=== PATIENT | male | born 1985 | race Asian ===

== ENCOUNTER 2017-04-24 08:27 | Inpatient (IN) | payer OTHER ==
[~2017-04-24] VITALS: Ht 172.7 cm; Wt 64.2 kg
[~2017-04-24 08:27] MED LIST: CEPH500C PO; LACT1CAP57 PO
[2017-04-24] MEDS ORDERED: SOD CHLORIDE 0.9% 500 ML IV STA (08:44)
[2017-04-24 09:16] LABS: BASOPHILS % 0.3 % (0.0-2.0); EOSINOPHILS # 0.1 10^3/ul (0.0-0.5); EOSINOPHILS % 1.7 % (0.0-7.0); HEMATOCRIT 48.9 % (42.0-52.0); HEMOGLOBIN 16.7 g/dl (14.0-18.0); LYMPHOCYTES # 2.4 10^3/ul (0.8-2.9); LYMPHOCYTES % 40.9 % (15.0-51.0); MEAN CORPUSCULAR HGB CONC 34.2 g/dl (32.0-37.0); MEAN CORPUSCULAR VOLUME 87.9 fl (82.0-101.0); MEAN PLATELET VOLUME 10.5 fl (7.4-10.4); MONOCYTE # 0.3 10^3/ul (0.3-0.9); MONOCYTES % 5.9 % (0.0-11.0); PLATELET COUNT 187 10^3/UL (140-415); RED BLOOD COUNT 5.56 10^6/ul (4.70-6.10); RED CELL DISTRIBUTION WIDTH 12.6 % (11.5-14.5); WHITE BLOOD COUNT 5.8 10^3/ul (4.8-10.8)
[2017-04-24 09:39] LABS: ALANINE AMINOTRANSFERASE 32 IU/L (13-69); ALBUMIN 5.1 g/dl (3.3-4.9); ALBUMIN/GLOBULIN RATIO 1.37; ALKALINE PHOSPHATASE 100 IU/L (42-121); ANION GAP 18 (8-16); ASPARTATE AMINO TRANSFERASE 30 IU/L (15-46); BILIRUBIN,INDIRECT 0.5 mg/dl (0-1.1); BILIRUBIN,TOTAL 0.5 mg/dl (0.2-1.3); BLOOD UREA NITROGEN 22 mg/dl (7-20); CALCIUM 10.3 mg/dl (8.4-10.2); CARBON DIOXIDE 21 mmol/L (21-31); CHLORIDE 109 mmol/L (97-110); CREATININE 1.27 mg/dl (0.61-1.24); GLUCOSE 85 mg/dl (70-220); POTASSIUM 3.4 mmol/L (3.5-5.1); SODIUM 145 mmol/L (135-144); TOTAL PROTEIN 8.8 g/dl (6.1-8.1)
[2017-04-24 09:45] LABS: ETHANOL < 10.0 mg/dl
[2017-04-24 10:30] LABS: ADD UMIC YES; UR ASCORBIC ACID NEGATIVE (NEGATIVE); UR BACTERIA FEW /HPF (NONE SEEN); UR BILIRUBIN (Dip) NEGATIVE (NEGATIVE); UR BLOOD (Dip) NEGATIVE (NEGATIVE); UR CLARITY CLEAR (CLEAR); UR COLOR STRAW (YELLOW); UR GLUCOSE (Dip) NEGATIVE (NEGATIVE); UR KETONES (Dip) NEGATIVE (NEGATIVE); UR LEUKOCYTE ESTERASE (Dip) 1+ Leu/ul (NEGATIVE); UR NITRITE (Dip) POSITIVE (NEGATIVE); UR RBC 0 /HPF (0-5); UR SPECIFIC GRAVITY (Dip) 1.004 (1.003-1.030); UR TOTAL PROTEIN (Dip) NEGATIVE (NEGATIVE); UR UROBILINOGEN (Dip) NEGATIVE (NEGATIVE)
[2017-04-24 10:49] LABS: BARBITURATES Negative (NEGATIVE); BENZODIAZEPINES Negative (NEGATIVE)
[2017-04-24 10:50] LABS: CANNABINOIDS Negative (NEGATIVE); COCAINE Negative (NEGATIVE); OPIATES Negative (NEGATIVE)
--- NOTE | 2017-04-24 10:50 | RADRPT ---
PROCEDURE: XR Chest. CLINICAL INDICATION: Chest pain, altered level of consciousness TECHNIQUE: AP view of the chest was performed. COMPARISON: July 24, 2016 FINDINGS: The cardiomediastinal silhouette is within normal limits. The lungs are clear. No signs of pleural f luid or pneumothorax are seen. The osseous structures and soft tissues are unremarkable. IMPRESSION: No evidence for active cardiopulmonary disease. No interval change. RPTAT: QQ .Susanne Layton MD, MD Date Time Electronically viewed and signed by .Susanne Layton MD, on 04/24/2017 10:49 .F/
[2017-04-24] MEDS ORDERED: CEFTRIAXONE 1 GM/50 ML (PMX) 50 ML IVPB ONE (11:30)
[2017-04-24] MEDS ORDERED: SODIUM CHLORIDE 0.9% 1L BAG IV* STA (11:30)
--- NOTE | 2017-04-24 11:38 | ERA ---
ER Documentation Chief Complaint Date/Time DATE: 04/24/17 TIME: 11:33 Chief Complaint c/o generalized weakness and chest pressure HPI This is a 31-year-old male who presents via EMS. It was initially reported that the patient was feeling anxious after taking a caffeine pill. However after having further conversation with the patient this is not accurate. The patient is altered and confused. He has a history of paraplegia. He cannot provide adequate history and is having flight of ideas. I spoke to his girlfriend on the phone who lives with him and states that he has been altered for approximately 24 hours. The patient does have recent hospitalization for sepsis secondary to UTI. The patient cannot provide further history as he is confused. No report of trauma per his girlfriend. No report of overdose or acute medication intoxication per his girlfriend either. ROS All systems reviewed and are negative except as per history of present illness. Medications Home Meds Discontinued Scripts Lactobacillus Rhamnosus* (Culturelle*) 1 Each Cap.sprink, 1 CAP PO BID, #14 CAP Prov:SAQIB HOPKINS MD 07/28/16 Cephalexin* (Cephalexin*) 500 Mg Capsule, 500 MG PO Q8, #15 CAP Prov:SAQIB HOPKINS MD 07/28/16 Allergies Allergies: Coded Allergies: No Known Allergy (Unverified , 04/24/17) PMhx/Soc History of Surgery: Yes (right arm, right tibia, right hip, right limb surgery on 1997) Anesthesia Reaction: No Hx Neurological Disorder: Yes (right below the knee weakness and left below the ankle weakness) Hx Respiratory Disorders: No Hx Cardiac Disorders: No Hx Psychiatric Problems: No Hx Miscellaneous Medical Probl: Yes (kidney stones , 2008 laser surgery) Hx Alcohol Use: No Hx Substance Use: No Hx Tobacco Use: No Smoking Status: Never smoker FmHx Family History: No diabetes Physical Exam Vitals Vital Signs Date Time Temp Pulse Resp B/P Pulse Ox O2 Delivery O2 Flow Rate FiO2 04/24/17 13:00 98.2 87 18 140/100 98 Room Air 04/24/17 11:30 98.0 77 18 152/115 98 Room Air 04/24/17 08:37 98.3 84 18 203/112 98 Physical Exam General: Well developed, well nourished, no acute distress Head: Normocephalic, atraumatic Eyes: Pupils equally reactive, EOM intact ENT: Moist mucous membranes Neck: Supple, no lymphadenopathy Respiratory: Lungs clear bilaterally, no distress Cardiovascular: RRR, no murmurs, rubs, or gallops Abdominal: Soft, non-tender, non-distended, no peritoneal signs : Deferred MSK: No edema, no unilateral swelling, 5/5 strength to bilateral upper extremities, paraplegia Neurologic: Alert to person, flight of ideas, moving all 4 extremities, no meningismus skin: No rash Psych: Flight of ideas Result Diagram: 04/24/1789904/24/17 09 Results 24 hrs Laboratory Tests Test 04/24/17 09:00 04/24/17 09:40 White Blood Count 5.810^3/ul Red Blood Count 5.5610^6/ul Hemoglobin 16.7g/dl Hematocrit 48.9% Mean Corpuscular Volume 87.9fl Mean Corpuscular Hemoglobin 30.0pg Mean Corpuscular Hemoglobin Concent 34.2g/dl Red Cell Distribution Width 12.6% Platelet Count 06742^3/UL Mean Platelet Volume 10.5fl Neutrophils % 51.0% Lymphocytes % 40.9% Monocytes % 5.9% Eosinophils % 1.7% Basophils % 0.3% Nucleated Red Blood Cells % 0.0/100WBC Neutrophils # 3.010^3/ul Lymphocytes # 2.410^3/ul Monocytes # 0.310^3/ul Eosinophils # 0.110^3/ul Basophils # 0.010^3/ul Nucleated Red Blood Cells # 0.010^3/ul Sodium Level 145mmol/L Potassium Level 3.4mmol/L Chloride Level 109mmol/L Carbon Dioxide Level 21mmol/L Anion Gap 18 Blood Urea Nitrogen 22mg/dl Creatinine 1.27mg/dl Glucose Level 85mg/dl Calcium Level 10.3mg/dl Total Bilirubin 0.5mg/dl Direct Bilirubin 0.00mg/dl Indirect Bilirubin 0.5mg/dl Aspartate Amino Transf (AST/SGOT) 30IU/L Alanine Aminotransferase (ALT/SGPT) 32IU/L Alkaline Phosphatase 100IU/L Total Protein 8.8g/dl Albumin 5.1g/dl Globulin 3.70g/dl Albumin/Globulin Ratio 1.37 Free Thyroxine 1.08ng/dl Ethyl Alcohol Level < 10.0mg/dl Urine Color STRAW Urine Clarity CLEAR Urine pH 7.0 Urine Specific Howell 1.004 Urine Ketones NEGATIVEmg/dL Urine Nitrite POSITIVEmg/dL Urine Bilirubin NEGATIVEmg/dL Urine Urobilinogen NEGATIVEmg/dL Urine Leukocyte Esterase 1+Da/ul Urine Microscopic RBC 0/HPF Urine Microscopic WBC 34/HPF Urine Bacteria FEW/HPF Urine Hemoglobin NEGATIVEmg/dL Urine Glucose NEGATIVEmg/dL Urine Total Protein NEGATIVEmg/dl Urine Opiates Screen Negative Urine Barbiturates Negative Urine Amphetamines Screen Negative Urine Benzodiazepines Screen Negative Urine Cocaine Screen Negative Urine Cannabinoids Negative Current Medications Medications (Trade) Dose Ordered Sig/Juvenal Route PRN Reason Start Time Stop Time Status Last Admin Dose Admin Sodium Chloride (NS) 500 ml @ 500 mls/hr Q1H STAT IV 04/24/17 08:44 04/24/17 09:43 DC 04/24/17 09:04 Sodium Chloride 2020 ml 2,020 ml BOLUS OVER 2 HOURS STAT IV* 04/24/17 11:30 04/24/17 11:34 DC 04/24/17 11:30 Ceftriaxone Sodium (Rocephin) 50 ml @ 100 mls/hr ONCE ONCE IVPB 04/24/17 11:30 04/24/17 11:59 DC 04/24/17 13:29 Ondansetron HCl (Zofran Inj) 4 mg BRIDGE ORDER PRN IV NAUSEA AND/OR VOMITING 04/24/17 12:30 04/24/17 13:02 DC Acetaminophen (Tylenol Tab) 650 mg ER BRIDGE PRN PO MILD PAIN/FEVER 04/24/17 12:30 04/24/17 13:02 DC IV Flush (NS 3 ml) 3 ml PER PROTOCOL IV 04/24/17 13:00 Ondansetron HCl (Zofran Inj) 4 mg Q6H PRN IV NAUSEA AND/OR VOMITING 04/24/17 13:00 Acetaminophen (Tylenol Tab) 650 mg Q6H PRN PO PAIN LEVEL 1-3 OR FEVER 04/24/17 13:00 Acetaminophen/ Hydrocodone Bitart ([place] (5/325)) 1 tab Q6H PRN PO MODERATE PAIN LEVEL 4-6 04/24/17 13:00 Morphine Sulfate (morphine) 2 mg Q4H PRN IV SEVERE PAIN LEVEL 7-10 04/24/17 13:00 Docusate Sodium (Colace) 100 mg Q12H PRN PO CONSTIPATION 04/24/17 13:00 Magnesium Hydroxide (Milk Of Mag) 30 ml DAILY PRN PO CONSTIPATION 04/24/17 13:00 Sodium Biphosphate/ Sodium Phosphate (Fleet Enema) 133 ml DAILY PRN [place] CONSTIPATION 04/24/17 13:00 Pantoprazole (Protonix Tab) 40 mg DAILY@06 PO 04/25/17 06:00 Heparin Sodium (Porcine) (Heparin (5000 Units/0.5 ml)) 5,000 unit Q12 SC 04/24/17 21:00 Lorazepam 0.5 mg 0.5 mg Q6H PRN IV ANXIETY 04/24/17 13:00 Sodium Chloride (NS) 1,000 ml @ 100 mls/hr Q10H IV 04/24/17 12:52 Albuterol/ Ipratropium 3 ml 3 ml Q4H RESP THERAPY PRN HHN SHORTNESS OF BREATH 04/24/17 13:00 Piperacillin Sod/ Tazobactam Sod (Zosyn 3.375gm/ 100 ml (Pmx)) 100 ml @ 200 mls/hr Q6 IVPB 04/24/17 18:00 Hydralazine HCl (Apresoline) 10 mg Q6H PRN IV ELEVATED BLOOD PRESSURE 04/24/17 13:00 Nitroglycerin (Nitroglycerin (Sl Tab) 0.4 Mg) 1 tab Q5M PRN SL ANGINA 04/24/17 13:00 Procedures/MDM EKG, MONITORS, & DIAGNOSTIC IMAGING: EKG: I reviewed and interpreted a 12-lead EKG. Rhythm: Normal sinus rhythm Ectopy: None Intervals: No abnormalities ST segments: No elevations or depressions T waves: No contiguous inversions CT brain: From [facility] the impression shows mild enlargement of the lateral and third ventricles well the fourth ventricle is not enlarged suggests aqueduct stenosis. The cerebral aqueduct itself is not clearly seen. This is very similar to MRI from July IMPRESSION: 1. No acute intracranial hemorrhage, infarction or mass. No intracranial enhancing abnormality. 2. Moderate ventriculomegaly which is disproportionate to mild sulcal enlargement. This may represent central greater than peripheral volume loss versus communicating hydrocephalus such as normal pressure hydrocephalus. 3. 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 4. A few small foci of white matter signal abnormality, nonspecific in appearance though perhaps reflective of complicated migraines, hypertensive microvascular ischemic disease, sequela from prior traumatic or inflammatory insults. RPTAT: HFN LAB INTERPRETATION: Urinary tract infection noted MEDICAL DECISION MAKING: The patient presents with altered mental status. Given the patient's prior history this is possibly related to UTI, consider polysubstance abuse versus underlying psychiatric illness. However, after speaking to the patient's girlfriend the patient does not have psychiatric illness. ER COURSE: Laboratory testing suggest urinary tract infection is the culprit. Blood cultures and lactic acid ordered. Patient was given ceftriaxone. CT brain is pending at this time. The patient will be admitted for further management of acute encephalopathy likely secondary to UTI. Sepsis screening has been initiated. The patient has no Sirs criteria does not meet criteria for sepsis. The patient was given IV fluids, blood cultures were taken and the patient was given ceftriaxone. The patient's CT shows dilated ventricles however reviewing the patient's electronic medical record an MRI in July reveals similar findings. The patient had negative evaluation workup with neurosurgery, neurology and infectious disease. I do not believe the neurosurgery requires consultation given these findings. The patient will be admitted for further management. His sensorium is clearing. I kept the patient and/or family informed of laboratory and diagnostic imaging results throughout the emergency room course. DISPOSITION PLAN: Medical surgical admission for altered mental status, UTI CONSULTATION: Accepting care team and consultations: I discussed the current laboratory data, diagnostic imaging and emergency care provided. Admitting team: Dr. Johnson Admitting team indication: Insurance directed Departure Diagnosis: Primary Impression: Acute encephalopathy Additional Impressions: Urinary tract infection Qualified Code: N30.00 - Acute cystitis without hematuria Acute renal insufficiency History of paraplegia Condition: Stable ABHAY TIJERINA MD Apr 24, 2017 11:38
[2017-04-24] MEDS ORDERED: ONDANSETRON 4 MG INJ IV PRN ×2 (12:30→13:00)
[2017-04-24] MEDS ORDERED: ACETAMINOPHEN 325 MG TAB PO PRN ×2 (12:30→13:00)
[2017-04-24 13:00] VITALS: PULSE 87; TEMP 98.2
[2017-04-24] MEDS ORDERED: NITROGLYCERIN (SL) 0.4 MG TAB SL PRN (13:00)
[2017-04-24] MEDS ORDERED: HYDROCODONE/APAP (5/325) TAB PO PRN (13:00)
[2017-04-24] MEDS ORDERED: ALBUTEROL/IPRATROPIUM (NEB) 3 ML AMP HHN PRN (13:00)
[2017-04-24] MEDS ORDERED: LORAZEPAM 2 MG INJ IV PRN (13:00)
[2017-04-24] MEDS ORDERED: MAGNESIUM HYDROXIDE 30ML CUP PO PRN (13:00)
[2017-04-24] MEDS ORDERED: hydrALAzine 20 MG INJ IV PRN (13:00)
[2017-04-24] MEDS ORDERED: NA PHOSPHATE/BIPHOS 133 ML ENEMA PR PRN (13:00)
[2017-04-24] MEDS ORDERED: DOCUSATE SODIUM 100 MG CAP PO PRN (13:00)
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
[2017-04-24 14:30] VITALS: BP 158/98; RESP 19
[2017-04-24] MEDS: SOD CHLORIDE 0.9% 1,000 ML IV SCH ×2 (16:23→22:52)
[2017-04-24 16:40] VITALS: Ht 172.7 cm; Wt 64.2 kg
[2017-04-24] MEDS: PIPER-TAZO 3.375 GM IV (PMX) 100 ML IVPB SCH (18:50)
[2017-04-24 20:13] VITALS: BP 137/90; RESP 18
[2017-04-24] MEDS: HEPARIN 5,000 UNIT/0.5 ML VIAL SC SCH (20:42)
--- NOTE | 2017-04-24 23:45 | RADRPT ---
PROCEDURE: CT head, without contrast. CLINICAL INDICATION: Altered mental status. TECHNIQUE: Noncontrast CT examination of the head, with axial, sagittal and coronal reformatted im ages. Automated dose exposure control was employed. CTDI: 43.37 and DLP: 928.91. COMPARISON: 07/24/2016. FINDINGS: No acute hemorrhage. Subarachnoid spaces are substantially preserved and symmetric. Bilateral lateral ventricles are mildly prominent suggesting a degree of hydrocephalus, and otherwis e these findings are similar in appearance to examination dated 07/24/2016. Findings may represent n ormal pressure hydrocephalus. Mild focal region of small vessel disease white matter versus small region of remote infarct of the white matter of the left frontal lobe, without significant slubber frame changer the interval. No significant change in mild chronic changes of small vessel disease white matter. No mass effect. Marsh-white matter distinction is preserved without evident decreased attenuation t o suggest acute or recent infarct. Sinuses and osseous structures are unremarkable. IMPRESSION: 1. Mildly prominent bilateral lateral ventricles, suggesting a degree of hydrocephalus. 2. These findings are without significant slubber frame changer interval since 07/24/2016. 3. Mild focal region of small vessel disease of white matter versus small region of remote infarct a t the white matter of the left frontal lobe. 4. This is without significant slubber frame changer the interval. 5. No significant change in mild chronic changes of small vessel disease white matter. 6. Otherwise, no acute process in the head. RPTAT: UU Physician Marsha Date Time Electronically viewed and signed by Physician Marsha on 04/24/2017 23:45 /
[2017-04-25] MEDS: PIPER-TAZO 3.375 GM IV (PMX) 100 ML IVPB SCH ×5 (00:41→23:52)
[2017-04-25 02:38] VITALS: BP 138/87; RESP 18
[2017-04-25] MEDS ORDERED: PANTOPRAZOLE (EC) 40 MG TAB PO SCH (06:00)
[2017-04-25 06:48] LABS: BASOPHILS % 0.4 % (0.0-2.0); EOSINOPHILS # 0.1 10^3/ul (0.0-0.5); EOSINOPHILS % 1.3 % (0.0-7.0); HEMATOCRIT 47.1 % (42.0-52.0); HEMOGLOBIN 15.7 g/dl (14.0-18.0); LYMPHOCYTES % 14.8 % (15.0-51.0); MEAN CORPUSCULAR HEMOGLOBIN 30.1 pg (29.0-33.0); MEAN CORPUSCULAR HGB CONC 33.3 g/dl (32.0-37.0); MEAN CORPUSCULAR VOLUME 90.4 fl (82.0-101.0); MEAN PLATELET VOLUME 10.7 fl (7.4-10.4); MONOCYTE # 0.5 10^3/ul (0.3-0.9); MONOCYTES % 7.5 % (0.0-11.0); NEUTROPHIL # 5.3 10^3/ul (1.6-7.5); NEUTROPHILS % 75.7 % (39.0-77.0); PLATELET COUNT 162 10^3/UL (140-415); RED BLOOD COUNT 5.21 10^6/ul (4.70-6.10)
[2017-04-25 07:26] LABS: CALCIUM 9.4 mg/dl (8.4-10.2); CREATININE 1.38 mg/dl (0.61-1.24); PHOSPHORUS 3.2 mg/dl (2.5-4.9)
[2017-04-25 07:32] LABS: CHOL/HDL RATIO 2.9 RATIO
[2017-04-25 07:55] LABS: THYROID STIMULATING HORMONE 2.03 MIU/L (0.465-4.680)
[2017-04-25 08:00] VITALS: BP 132/87; RESP 20
[2017-04-25] MEDS: SOD CHLORIDE 0.9% 1,000 ML IV SCH (08:54)
[2017-04-25] MEDS: HEPARIN 5,000 UNIT/0.5 ML VIAL SC SCH ×2 (08:54→21:57)
[2017-04-25 14:22] VITALS: BP 140/99; RESP 16
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
[2017-04-25 20:45] VITALS: BP 137/95; RESP 18
[2017-04-26 02:46] VITALS: BP 123/93; RESP 18
[2017-04-26] MEDS: PIPER-TAZO 3.375 GM IV (PMX) 100 ML IVPB SCH ×3 (05:47→17:22)
[2017-04-26 07:59] VITALS: BP 131/81; RESP 20
[2017-04-26 08:15] LABS: BASOPHILS % 0.5 % (0.0-2.0); EOSINOPHILS # 0.1 10^3/ul (0.0-0.5); EOSINOPHILS % 2.3 % (0.0-7.0); HEMATOCRIT 45.8 % (42.0-52.0); LYMPHOCYTES # 1.3 10^3/ul (0.8-2.9); LYMPHOCYTES % 23.1 % (15.0-51.0); MEAN CORPUSCULAR HEMOGLOBIN 29.2 pg (29.0-33.0); MEAN CORPUSCULAR HGB CONC 32.8 g/dl (32.0-37.0); MEAN CORPUSCULAR VOLUME 89.1 fl (82.0-101.0); MEAN PLATELET VOLUME 10.3 fl (7.4-10.4); MONOCYTE # 0.5 10^3/ul (0.3-0.9); MONOCYTES % 8.4 % (0.0-11.0); NEUTROPHIL # 3.8 10^3/ul (1.6-7.5); NEUTROPHILS % 65.5 % (39.0-77.0); PLATELET COUNT 154 10^3/UL (140-415); RED BLOOD COUNT 5.14 10^6/ul (4.70-6.10); RED CELL DISTRIBUTION WIDTH 12.9 % (11.5-14.5); WHITE BLOOD COUNT 5.7 10^3/ul (4.8-10.8)
[2017-04-26] MEDS: HEPARIN 5,000 UNIT/0.5 ML VIAL SC SCH ×2 (08:40→20:21)
[2017-04-26 08:53] LABS: CALCIUM 9.3 mg/dl (8.4-10.2); CREATININE 1.43 mg/dl (0.61-1.24); POTASSIUM 3.5 mmol/L (3.5-5.1)
--- NOTE | 2017-04-26 09:08 | RADRPT ---
PROCEDURE: US Renal CLINICAL INDICATION: Elevated creatinine TECHNIQUE: Multiple sonographic images of the kidneys and bladder were obtained. Evaluation of th e kidneys and bladder was performed as well with welsh scale and color and Doppler evaluation using a curved array transducer. The images were reviewed on a high-resolution PACS workstation. COMPARISON: Abdominal ultrasound dated 07/25/2016 FINDINGS: The right kidney measures 9.0 cm in length. There is mild dilatation of the calyces. No definite pel viectasis is seen. There is a 5 mm calculus within the mid pole of the right kidney. The left kidney measures 12.0 cm in length. There are multiple calculi within the left kidney within the lower pole , and renal pelvis measuring up to 2.5 cm in diameter. The renal parenchyma demonstrates increased e chogenicity. No perinephric fluid collection is seen. The bladder is under distended, but otherwise unremarkable. IMPRESSION: 1. Mild dilatation of the right renal calyces, not significantly changed from prior ultrasound date d 07/25/2016. There is a 5 mm nonobstructing calculus within the mid pole of the right kidney. 2. Findings suggesting right staghorn calculus. Consider CT of the abdomen and pelvis for further e valuation. 3. Bilateral echogenic kidneys suggesting medical renal disease. RPTAT: HH .Brenna Campos MD, Date Time Electronically viewed and signed by .Brenna Campos MD, on 04/26/2017 07:20 .G/
[2017-04-26] MEDS: NACL 0.9% 3 ML SYG IV SCH ×3 (11:30→17:23)
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
[2017-04-26 14:00] VITALS: BP 143/86; RESP 19
--- NOTE | 2017-04-26 15:24 | RADRPT ---
PROCEDURE: CT Abdomen and Pelvis without contrast. CLINICAL INDICATION: Abdominal and pelvic pain. History of urinary tract calculus. TECHNIQUE: CT scan of the abdomen and pelvis without contrast was performed. Coronal and sagittal reformatted images were obtained from the axial source images. Images were reviewed on a high-resolu tion PACS workstation. Total exam DLP is 375.18 mGy-cm. CTDIvol is 6.11 mGy. One or more of the fo llowing dose reduction techniques were used: Automated exposure control, adjustment of the mA and/or kV according to patient size, use of iterative reconstruction technique. COMPARISON: Renal ultrasound dated 04/25/2017. FINDINGS: The lung bases are normal. There is no pleural effusion. The liver is normal in size and attenuation. There is no focal hepatic lesion. The gallbladder and bile ducts are normal. The spleen is normal in size. There is no focal splenic lesion. There is a fat-containing right adrenal mass consistent with a benign adenoma or myolipoma measuring 3.1 x 2.9 x 3.7 cm in AP, transverse, and cranial caudal dimensions. The left adrenal is normal. The pancreas is unremarkable with no mass or evidence of pancreatitis. There is moderate right hydronephrosis with no obstructing lesion visualized. The right kidney is at rophic. There is no right renal mass or calculus. There is mild left hydronephrosis with no obstruct ing lesion visualized. There is a nonobstructing calculus in the left renal pelvis measuring 0.9 x 2 .1 x 1.4 cm in AP, transverse, and cranial caudal dimensions. There is also a nonobstructing calculu s in the lower left kidney measuring 1.1 x 1.3 x 1.7 cm in AP, transverse, and cranial caudal dimens ions. The abdominal aorta is not dilated. There is no retroperitoneal lymphadenopathy or mass. There is no pelvic lymphadenopathy or mass. There is a Ahumada catheter in the urinary bladder. A bladder base implanted device is noted with cath eters extending to a reservoir in the left side of the pelvis inferiorly and in the left side of the scrotum. There is evidence of prior bowel surgery in the region of the cecum with surgical carrol noted. The bowel and mesentery are otherwise normal. The appendix is not visualized. There is no free fluid or free gas. The osseous structures demonstrate no acute fracture or dislocation. There has been previous fractur e of the right femur with a probable intramedullary bettye removal. There is mild deformity of the prox imal femur and greater trochanter region related to the prior fracture. IMPRESSION: 1. Right adrenal benign adenoma or myolipoma measuring 3.7 cm in maximal dimension. 2. Moderate right hydronephrosis with no obstructing lesion visualized. Atrophic right kidney. 3. Mild left hydronephrosis with no obstructing lesion visualized. 4. Nonobstructing calculi in the left kidney, within the renal pelvis and lower pole. 5. Ahumada catheter in the bladder. Bladder base implanted device noted. 6. Prior bowel surgery in the region of the cecum. 7. Prior fracture with mild deformity of the proximal right femur. RPTAT: QQ .John Davies MD, Date Time Electronically viewed and signed by .John Davies MD, on 04/26/2017 15:24 .R/
[2017-04-26] MEDS: morphine 2 MG INJ IV PRN ×2 (15:28→22:22)
[2017-04-26 21:34] VITALS: BP 133/91; RESP 18
[2017-04-27] MEDS: PIPER-TAZO 3.375 GM IV (PMX) 100 ML IVPB SCH ×2 (00:22→05:53)
[2017-04-27 02:51] VITALS: BP 126/92; RESP 18
[2017-04-27 08:00] VITALS: BP 129/86; RESP 16
[2017-04-27 08:31] LABS: BASOPHILS % 0.7 % (0.0-2.0); EOSINOPHILS # 0.2 10^3/ul (0.0-0.5); EOSINOPHILS % 3.3 % (0.0-7.0); HEMATOCRIT 45.3 % (42.0-52.0); HEMOGLOBIN 14.9 g/dl (14.0-18.0); LYMPHOCYTES # 1.8 10^3/ul (0.8-2.9); LYMPHOCYTES % 31.7 % (15.0-51.0); MEAN CORPUSCULAR HGB CONC 32.9 g/dl (32.0-37.0); MEAN CORPUSCULAR VOLUME 88.3 fl (82.0-101.0); MEAN PLATELET VOLUME 10.2 fl (7.4-10.4); MONOCYTE # 0.5 10^3/ul (0.3-0.9); MONOCYTES % 9.6 % (0.0-11.0); NEUTROPHILS % 54.5 % (39.0-77.0); PLATELET COUNT 157 10^3/UL (140-415); RED BLOOD COUNT 5.13 10^6/ul (4.70-6.10); RED CELL DISTRIBUTION WIDTH 12.9 % (11.5-14.5); WHITE BLOOD COUNT 5.5 10^3/ul (4.8-10.8)
[2017-04-27 08:55] LABS: CALCIUM 9.5 mg/dl (8.4-10.2); CREATININE 1.43 mg/dl (0.61-1.24); POTASSIUM 3.3 mmol/L (3.5-5.1)
[2017-04-27] MEDS: LEVOFLOXACIN 250 MG TAB PO SCH (09:27)
[2017-04-27] MEDS: HEPARIN 5,000 UNIT/0.5 ML VIAL SC SCH ×2 (09:32→21:49)
[2017-04-27] MEDS ORDERED: LEVO250T35 PO (11:27)
--- NOTE | 2017-04-27 11:29 | PDOCDIS ---
Discharge Instructions CONDITION Patient Condition: Stable FOLLOW UP/APPOINTMENTS Follow-up Plan Follow up with your regular doctor within 2 weeks KEVIN LYNN MD Apr 27, 2017 11:29
--- NOTE | 2017-04-27 11:34 | DS ---
Date/Time of Note Date/Time of Note DATE: 04/27/17 TIME: 11:30 Discharge Summary Admission/Discharge Info Admit Date/Time Apr 24, 2017 at 12:04 Discharge Date/Time Discharge Diagnosis acute toxic/metabolic encephalopathy from complicated cystitis (neurogenic bladder) Patient Condition: Stable Home Meds Active Scripts Levofloxacin* (Levaquin*) 250 Mg Tablet, 250 MG PO DAILY for 11 Days, #11 TAB Prov:KEVIN LYNN MD 04/27/17 Discontinued Scripts Lactobacillus Rhamnosus* (Culturelle*) 1 Each Cap.sprink, 1 CAP PO BID, #14 CAP Prov:SAQIB HOPKINS MD 07/28/16 Cephalexin* (Cephalexin*) 500 Mg Capsule, 500 MG PO Q8, #15 CAP Prov:SAQIB HOPKINS MD 07/28/16 Follow-up Plan Follow up with your regular doctor within 2 weeks Primary Care Provider Care Physician No Primary Pending Labs Laboratory Tests Test 04/26/17 15:10 04/27/17 08:05 Urine Eosinophils % 0.0% (0-1.9) White Blood Count 5.510^3/ul (4.8-10.8) Red Blood Count 5.1310^6/ul (4.70-6.10) Hemoglobin 14.9g/dl (14.0-18.0) Hematocrit 45.3% (42.0-52.0) Mean Corpuscular Volume 88.3fl (82.0-101.0) Mean Corpuscular Hemoglobin 29.0pg (29.0-33.0) Mean Corpuscular Hemoglobin Concent 32.9g/dl (32.0-37.0) Red Cell Distribution Width 12.9% (11.5-14.5) Platelet Count 94949^3/UL (140-415) Mean Platelet Volume 10.2fl (7.4-10.4) Neutrophils % 54.5% (39.0-77.0) Lymphocytes % 31.7% (15.0-51.0) Monocytes % 9.6% (0.0-11.0) Eosinophils % 3.3% (0.0-7.0) Basophils % 0.7% (0.0-2.0) Nucleated Red Blood Cells % 0.0/100WBC (0.0-0.0) Neutrophils # 3.010^3/ul (1.6-7.5) Lymphocytes # 1.810^3/ul (0.8-2.9) Monocytes # 0.510^3/ul (0.3-0.9) Eosinophils # 0.210^3/ul (0.0-0.5) Basophils # 0.010^3/ul (0.0-0.1) Nucleated Red Blood Cells # 0.010^3/ul (0.0-0.0) Sodium Level 140mmol/L (135-144) Potassium Level 3.3mmol/L (3.5-5.1) Chloride Level 106mmol/L (97-110) Carbon Dioxide Level 25mmol/L (21-31) Anion Gap 12 (8-16) Blood Urea Nitrogen 13mg/dl (7-20) Creatinine 1.43mg/dl (0.61-1.24) Glucose Level 103mg/dl (70-220) Calcium Level 9.5mg/dl (8.4-10.2) KEVIN LYNN MD Apr 27, 2017 11:34
[2017-04-27] MEDS ORDERED: POTASSIUM CHLORIDE (SR) 20 MEQ TAB PO STA (13:51)
[2017-04-27 14:00] VITALS: BP 126/56; RESP 18
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
--- NOTE | 2017-04-27 16:11 | RADRPT ---
Vent Rate: 65 bpm RR Interval: 0 msec GA Interval: 158 msec QRS Duration: 94 msec QT Interval: 404 msec QTC Interval: 420 msec P-R-T [place]: 63 - 70 - 67 degrees Normal sinus rhythm Normal ECG Electronically Signed By: Allen Mast [id number]
[2017-04-27 20:32] VITALS: BP 143/94; RESP 16
[2017-04-28 02:54] VITALS: BP 131/91; RESP 18
[2017-04-28 08:23] VITALS: BP 144/103; RESP 17
[2017-04-28 08:51] LABS: BASOPHILS % 0.6 % (0.0-2.0); EOSINOPHILS # 0.1 10^3/ul (0.0-0.5); EOSINOPHILS % 2.3 % (0.0-7.0); HEMATOCRIT 48.2 % (42.0-52.0); HEMOGLOBIN 16.3 g/dl (14.0-18.0); LYMPHOCYTES # 1.7 10^3/ul (0.8-2.9); MEAN CORPUSCULAR HEMOGLOBIN 29.8 pg (29.0-33.0); MEAN CORPUSCULAR HGB CONC 33.8 g/dl (32.0-37.0); MEAN CORPUSCULAR VOLUME 88.1 fl (82.0-101.0); MEAN PLATELET VOLUME 10.4 fl (7.4-10.4); MONOCYTE # 0.4 10^3/ul (0.3-0.9); MONOCYTES % 6.8 % (0.0-11.0); NEUTROPHILS % 56.9 % (39.0-77.0); PLATELET COUNT 196 10^3/UL (140-415); RED BLOOD COUNT 5.47 10^6/ul (4.70-6.10); RED CELL DISTRIBUTION WIDTH 12.7 % (11.5-14.5); WHITE BLOOD COUNT 5.3 10^3/ul (4.8-10.8)
[2017-04-28 09:06] LABS: CALCIUM 9.6 mg/dl (8.4-10.2); CREATININE 1.07 mg/dl (0.61-1.24); POTASSIUM 3.8 mmol/L (3.5-5.1)
[2017-04-28] MEDS: LEVOFLOXACIN 250 MG TAB PO SCH (09:23)
[2017-04-28] MEDS: HEPARIN 5,000 UNIT/0.5 ML VIAL SC SCH (09:25)
[2017-04-28] MEDS ORDERED: LEVO250T35 PO (09:46)
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
[2017-04-28 14:56] VITALS: BP 140/97; RESP 16
== END 2017-04-28 18:25 | disposition home or self-care (01) | DRG 698 ==
LOC: E/R 08:27 → PP2 12:04
PROVIDERS: ADMIT Internal Medicine; ATTEND Internal Medicine
DX: T83.511A Infection and inflammatory reaction due to indwelling urethral catheter, initial encounter (principal); G92 Toxic encephalopathy; N30.90 Cystitis, unspecified without hematuria; G82.20 Paraplegia, unspecified; N31.9 Neuromuscular dysfunction of bladder, unspecified; N28.9 Disorder of kidney and ureter, unspecified; Z87.442 Personal history of urinary calculi
CPT/HCPCS: 36415; 70450; 71010; 74176; 76775; 80048; 80053; 80061; 80306; 80307; 81001; 82140; 83036; 83605; 83735; 84100; 84155; 84300; 84439; 84443; 85025; 87040; 87086; 89190; 93005; 96374; J0696; J1644; J2270; J2543; J7030; J7040

== ENCOUNTER 2017-10-04 12:06 | Inpatient (IN) | END 2017-10-07 20:00 | disposition home or self-care (01) | DRG 872 ==

== ENCOUNTER 2018-02-02 09:53 | Emergency (ER) | END 2018-02-02 10:56 | disposition home or self-care (01) ==